=== PATIENT | female | born 1990 | race Caucasian/White ===

== ENCOUNTER 2020-02-10 09:26 | Day surgery (SDC) | payer OTHER ==
[~2020-02-10] VITALS: Ht 172.7 cm; Wt 90.9 kg
--- NOTE | ~2020-02-10 | OP ---
PATIENT NAME: ARAMIS DE LOS SANTOS MEDICAL RECORD: [id number] :92 LOCATION:D.OPS ADMISSION DATE: SURGEON: BURT GR DO DATE OF OPERATION: 02/10/2020 PREOPERATIVE DIAGNOSIS: Suspected ovarian torsion. POSTOPERATIVE DIAGNOSIS: Right hemorrhagic cyst. PRIMARY SURGEON: Burt Gr DO ANESTHESIA: General ET tube. PROCEDURES: Diagnostic laparoscopy, right ovarian cystectomy. FINDINGS: Normal appearing external genitalia, normal appearing vaginal vault, normal appearing cervix. Uterus sounded to 8 cm. Right ovarian cyst. Ovary not torsed. Left fallopian tube and ovary grossly normal and uterus grossly normal. SPECIMENS: Right ovarian cyst wall. ESTIMATED BLOOD LOSS: 10 cc. IV FLUIDS: 900 cc. URINE OUTPUT: 75 cc clear urine. COMPLICATIONS: None. CONDITION: Stable. PROCEDURE: The risks, benefits, alternatives, and indications of the procedure were discussed with the patient. She voiced understanding of the procedure and signed a consent. She was taken to the OR where general anesthesia was administered and found to be adequate. She was placed in the dorsal lithotomy position. She was prepped and draped in the normal sterile fashion. A speculum was placed in the posterior aspect of the vagina. Single tooth tenaculum was used to grasp the anterior lip of the cervix. The uterus was sounded to 8 cm. The cervix was further dilated to accommodate the HUMI uterine manipulator. The HUMI uterine manipulator was placed without difficulty and all other instruments were removed from the vagina with good hemostasis noted. Gloves were changed and attention was then turned to the abdomen. The abdomen was elevated. A 5-mm incision was created in the umbilicus and a 5-mm port was placed with the laparoscope for visualization. The patient was placed in Trendelenburg position. A 5-mm port was placed under direct laparoscopic visualization in the left lower quadrant and right lower quadrant 2 cm superior and 2 cm medial to the bilateral ASIS. The uterus was elevated out of the pelvis and the right ovary was not noted to be torsed at that time. There was a right hemorrhagic ovarian cyst that was noted. The ovary was elevated out of the pelvis and EndoShears were used to attempt to remove the cyst without rupture. However, due to the tension on the cyst, there was rupture of the cyst with hemorrhagic contents spilling into the pelvis. The cyst wall was then removed from the ovary and good hemostasis was noted at the ovarian bed. The pelvis was copiously irrigated to assure that all hemorrhagic cyst fluid was removed from OPERATIVE REPORT [id number] ARAMIS DE LOS SANTOS the pelvis. Attention was then turned to look at the ovary again and good hemostasis was again noted at the ovarian bed. All instruments and ports were removed from the abdomen and the pneumoperitoneum was released. The port sites were closed with 3-0 Monocryl and Dermabond, covering. All needle, lap, sponge, and instrument counts were correct times 2. The patient tolerated the procedure well and she was awakened and taken to the recovery room in stable condition. TRANSINT:[id number] Voice Confirmation ID: [id number] DOCUMENT ID: [id number] BURT GR DO CC: [id number] DICTATION DATE: 02/25/201934 TRAINING AND DEVELOPMENT PROJECT LEADER: 02/25/202157 [facility] 02/10/20 [id number] [place] [address]
[2020-02-10 09:29] VITALS: Ht 172.7 cm; Wt 90.9 kg
[2020-02-10] MEDS ORDERED: BUPROPION HCL75 MG PO (09:31)
[2020-02-10] MEDS ORDERED: BUTALB-APAP-CA1 EACH PO (09:32)
[2020-02-10 09:54] LABS: BILIRUBIN NEGATIVE (NEGATIVE); GLUCOSE NEGATIVE (NEGATIVE); KETONE NEGATIVE (NEGATIVE); NITRITE NEGATIVE (NEGATIVE); SPECIFIC GRAVITY 1.005 (1.005-1.020); UROBILINOGEN NORMAL (NORMAL)
[2020-02-10 09:58] LABS: BACTERIA FEW /hpf (NEGATIVE); EPITHELIAL CELLS 0-5 /hpf (0-5); RED CELLS - URINE 0-5 /hpf (0-5); WHITE CELLS - URINE 0-5 /hpf (NEGATIVE)
[2020-02-10 10:15] LABS: BASOPHILS 0.2 % (0-2); EOSINOPHILS 0.1 % (0-7); HEMATOCRIT 40.7 % (36.0-48.0); HEMOGLOBIN 13.5 g/dL (12-16); IMMATURE GRANULOCYTES 0.3 % (0-5); LYMPHOCYTES 7.4 % (15-50); MCH 30.8 pg (26.0-34.0); MCHC 33.2 g/dL (31.0-37.0); MCV 92.9 fL (80.0-100.0); MEAN PLATELET VOLUME 8.6 fL (7.4-10.4); MONOCYTES 5.1 % (2-11); NEUTROPHILS 86.9 % (40-80); PLATELET COUNT 248 10x3/uL (130-400); RBC 4.38 10x6/uL (4.00-5.40)
[2020-02-10 10:20] LABS: CALC OSMOLALITY 272 mosm/kg (275-300); CALCIUM 8.6 mg/dL (8.5-10.1); CARBON DIOXIDE 28.1 mmol/L (21.0-32.0); CHLORIDE - SERUM 102 mmol/L (98-107); CREATININE - SERUM 0.8 mg/dL (0.6-1.3); GLUCOSE 98 mg/dL (74-106); POTASSIUM - SERUM 3.3 mmol/L (3.5-5.1); SODIUM 138 mmol/L (136-145); UREA NITROGEN 5 mg/dL (7-18); eGFR NON AFRICAN AMERICAN > 90 mL/min (90-120)
[2020-02-10 10:30] LABS: ALBUMIN 3.7 g/dL (3.4-5.0); ALKALINE PHOSPHATASE 71 U/L (30-120); ALT (SGPT) 65 U/L (10-68); AMYLASE - SERUM 24 U/L (25-115); LIPASE 62 U/L (73-393); PROTEIN - SERUM 6.8 g/dL (6.4-8.2); TROPONIN-I < 0.017 ng/mL (0.000-0.060)
[2020-02-10 10:36] LABS: HCG SERUM NEGATIVE (NEGATIVE)
[2020-02-10 13:18] VITALS: BP 125/87
--- NOTE | 2020-02-10 16:41 | NUR ---
1613 - PT AWAKENING, OPA REMOVED
--- NOTE | 2020-02-10 16:41 | NUR ---
PT REPORTS NAUSEA IS IMPROVING
--- NOTE | 2020-02-10 18:32 | NUR ---
1805-REMOVED IV WITH CATH INTACT,DISPOSED INTO SHARPS,COVERED WITH GUAZE,SECURED WITH MEDIPORE TAPE. VSS.PAIN 10/26. DRESSING CDI. NO DISTRESS, NO N/V. HAS VOIDED WITHOUT COMPLICATIONS. REVIEWED POST OP INSTRUCTIONS AND FOLLOW UP APPOINTMENT.VERBALIZED UNDERSTANDING.
--- NOTE | 2020-02-10 18:33 | NUR ---
1814-ESCORTED OUT VIA W/C WITH MOTHER AWAITING TO DRIVE HOME
== END 2020-02-10 18:15 | disposition home or self-care (01) ==
LOC: D.LD 09:26 → D.ER 09:26 → EDSTATUS 13:00 → D.LD 13:49 → D.ER 13:49 → D.OPS 13:49 → D.LD 13:50 → D.OPS 18:15 → EDSTATUS 02-25 13:00
PROVIDERS: Family Medicine; ATTEND Student in an Organized Health Care Education/Training Program
DX: N83.201 Unspecified ovarian cyst, right side (principal); E87.6 Hypokalemia; D72.829 Elevated white blood cell count, unspecified; R10.31 Right lower quadrant pain; N39.0 Urinary tract infection, site not specified; R11.0 Nausea